=== PATIENT | female | born 1960 | race Caucasian/White ===

== ENCOUNTER → 2017-02-17 16:56 | Outpatient (CLI) | payer BC | END | disposition home or self-care (01) | LOC: D.MAMMO 08:00 | DX: Z12.31 Encounter for screening mammogram for malignant neoplasm of breast (principal) ==

== ENCOUNTER → 2017-08-04 10:47 | Outpatient (CLI) | payer BC | END | disposition home or self-care (01) | LOC: D.CT 10:47 | DX: R60.0 Localized edema (principal); K37 Unspecified appendicitis ==

== ENCOUNTER → 2018-01-12 10:12 | Outpatient (CLI) | payer BC | END | disposition home or self-care (01) | LOC: D.US 01-04 10:30 | DX: E04.2 Nontoxic multinodular goiter (principal) ==

== ENCOUNTER 2019-10-24 19:00 | Outpatient (CLI) | payer BC | END 2019-10-24 23:59 | disposition home or self-care (01) | LOC: D.MAMMO 19:00 | PROVIDERS: ATTEND Family Medicine | DX: Z12.31 Encounter for screening mammogram for malignant neoplasm of breast (principal) ==

== ENCOUNTER → 2020-05-17 13:10 | Outpatient (CLI) | payer BC ==
[2020-05-17 17:44] LABS: BASOPHILS 0.3 % (0-2); EOSINOPHILS 2.5 % (0-7); HEMATOCRIT 41.9 % (36.0-48.0); HEMOGLOBIN 12.1 g/dL (12-16); IMMATURE GRANULOCYTES 0.2 % (0-5); MCH 27.8 pg (26.0-34.0); MCHC 28.9 g/dL (31.0-37.0); MCV 96.1 fL (80.0-100.0); MEAN PLATELET VOLUME 10.2 fL (7.4-10.4); MONOCYTES 5.5 % (2-11); NEUTROPHILS 65.5 % (40-80); PLATELET COUNT 290 10x3/uL (130-400); RBC 4.36 10x6/uL (4.00-5.40); RDW 15.6 % (11.5-14.5); WBC 6.4 10x3/uL (4.8-10.8)
== END | disposition home or self-care (01) ==
LOC: D.LABREF 13:10
PROVIDERS: ATTEND Internal Medicine Pulmonary Disease
DX: J45.909 Unspecified asthma, uncomplicated (principal)

== ENCOUNTER 2020-05-17 16:56 | Outpatient (CLI) | payer BC | END 2020-05-17 16:57 | LOC: D.MAMMO 16:56 | PROVIDERS: ATTEND Family Medicine | DX: Z12.31 Encounter for screening mammogram for malignant neoplasm of breast (principal) ==